=== PATIENT | male | born 1955 | race Caucasian/White ===

== ENCOUNTER 2023-10-24 09:03 | Outpatient (OUT) | payer OTHER, SELFPAY ==
[2023-10-24 09:45] LABS: Basophils Percent Auto 0.6 % (0.2-2.0); Eosinophils Absolute Auto 0.1 10^3/uL (0.0-0.7); Eosinophils Percent Auto 1.7 % (0.9-7.0); Hematocrit 40.5 % (42.0-54.0); Hemoglobin 13.6 g/dL (14.0-18.0); Immature Granulocytes Abs Auto 0.02 10^3/uL (0.00-0.03); Immature Granulocytes Pct Auto 0.3 % (0.0-0.5); Lymphocytes Absolute Auto 1.5 10^3/uL (1.2-3.8); Lymphocytes Percent Auto 21.4 % (20.5-60.0); Mean Corpuscular HGB Conc 33.6 g/dL (29.9-35.2); Mean Corpuscular Hemoglobin 29.8 pg (25.9-34.0); Mean Corpuscular Volume 88.8 fL (80.0-94.0); Monocytes Absolute Auto 0.5 10^3/uL (0.3-0.8); Monocytes Percent Auto 6.5 % (1.7-12.0); Neutrophils Absolute Auto 4.8 10^3/uL (1.4-6.5); Neutrophils Percent Auto 69.5 % (43.0-75.0); Platelet Count 273 10^3/uL (150-450); Red Blood Count 4.56 10^6/uL (4.70-6.10); White Blood Count 6.9 10^3/uL (4.0-11.0)
[2023-10-24 11:16] LABS: Prostate Specific Antigen Scrn 0.88 ng/mL (<=4.00)
[2023-10-24 13:00] LABS: Alanine Aminotransferase 27 U/L (16-63); Albumin Globulin Ratio 1.1; Alkaline Phosphatase 69 U/L (46-116); Aspartate Amino Transferase 16 U/L (15-37); BUN Creatinine Ratio 20.7; Bilirubin Total 0.7 mg/dL (0.2-1.0); Calcium 9.5 mg/dL (8.5-10.1); Chloride 104 mmol/L (98-107); Chol HDL Ratio 3.3; Cholesterol 193 mg/dL (<=200); Estimated GFR (African America >60 (>=60); Estimated GFR (Non-African Ame >60 (>=60); Globulin 3.6 g/dL; Glucose 121 mg/dL (74-106); HDL Cholesterol 59 mg/dL (40-60); LDL Cholesterol Calculated 122.2 mg/dL; Sodium 140 mmol/L (136-145); Total Protein 7.6 g/dL (6.4-8.2); Triglycerides 59 mg/dL (<=150); VLDL CHOLESTEROL 11.8 mg/dL
== END 2023-10-24 09:04 | disposition home or self-care (01) ==
LOC: LAB 09:07
PROVIDERS: PCP Family Medicine; Visit Provider Family Medicine
DX: Z12.5 Encounter for screening for malignant neoplasm of prostate (principal); I10 Essential (primary) hypertension
CPT/HCPCS: 36415; 80053; 80061; 85025; G0103

== ENCOUNTER 2025-05-13 09:28 | Outpatient (OUT) | payer MEDICARE, SELFPAY ==
--- OUTSIDE RECORDS SUMMARY | 2025-05-13 05:22 | XMS_ITS | Continuity of Care Document ---
Author Organization [facility] Address [address] [place] [address] Phone Care Team Providers Care Document Clerk Name Role Phone Rhina Shaw MD Primary Care Provider Rhina Shaw MD Attending Provider Care Teams Patient Care Team Team Status: Active Member Role/Relationship Status Dates Rhina Shaw MD Primary Care Provider Active Patient Care Team Team Status: Inactive Member Role/Relationship Status Dates Rhina Shaw MD Primary Care Provider Active Start: May 13, 2025 End: May 13, 2025Rhina Sahw MDAttending ProviderActiveStart: May 13, 2025 End: May 13, 2025 Chief Complaint and Reason for Visit Chief Complaint Admit Date Wellness May 13, 2025 8 :33am Reason for Visit Admit Date Hypertension May 13, 2025 8 :33am Screening PSA (prostate specific antigen ) May 13, 2025 8:33am Allergies, Adverse Reactions, Alerts Allergen Type Severity Reaction Last Updated Verified Status No Known Allergies Allergy Unknown May 13, 2025 8:54amYesActive Social History Smoking Status Status Start Date End Date Date of Observa tion Never smoked tobacco (finding) October 24, 2023 8:26am Observation Status Observation Response Date of Response Legal Sex [facility] (finding) [facility] [place] 1954 Family History Relationship Condition Age at Onset Recorded Date/T isaura mother Malignant neoplasm Unknown fatherHypertensionUnknownMyocardial infarctionUnknown Problems Active Problems Problem Diagnosis/Recorded Date Onset Date Stat us Screening PSA (prostate specific antigen) October 24, 2023 8:44am Unknown Active Hypertension October 23, 2023 4:56pm Unknown Acti ve Medications Medication Status Dose Units Route Directions Qty Days Refills S tart Date Stop Date End Date Reason(s) Instructions Adherence Lisinopril-Hydrochlorothiazide 20-25 mg tablet Discont inued 0 .ROUTE.BBBZOKO336Rbjgo 2023 12:36pmApril 2023 9:51amTAKE 1 TABLET BY MOUTH EVERY DAYLisinopril-Hydrochlorothiazide 20-25 mg tabletDiscontinued0.ROUTE .DQXNWUB129Wbbub 2023 9:51amNovember 2023 5:35pmTAKE 1 TABLET BY MOUTH EVERY DAYLisinopril-Hydrochlorothiazide 20-25 mg tabletDiscontinued0.ROUTE .MEOWOBL596Wdogxqrd 2023 5:35pmOctober 2024 9:17amTAKE 1 TABLET BY MOUTH EVERY DAYLisinopril-Hydrochlorothiazide 20-25 mg hcdjqlWumnwayvokst7HTQAO DailyApril 2023 12:00amApril 2023 12:36pmLisinopril- Hydrochlorothiazide 20-25 mg tabletActive0.ROUTE.VNOFBGJ056Jcnrlpt 2024 9:16amTAKE 1 TABLET BY MOUTH EVERY DAYComplies with drug therapy Vital Signs Vital Reading Result Reference Range Collection Date/Time Height 71 [in_i] May 13, 2025 8:31qpGtprwy49.80 [facility] 8:53amHeart Rate69 /kxl29-454Tzofncy 2024 8:53amBP Gkapwezp659 mm[Hg]100-140[facility] 2024 9:02amBP Hnbyxnohe53 mm[Hg]60-100[facility] 2024 9:02amBMI (Body Mass Index)29.1 kg/f5Gktuepk 2024 8:53am Advance Directives Advance Directive Response Recorded Date/ Time Advance Directives No October 12 3:07pm Insurance Providers Guarantor Jose Ricks Address [address] [facility] [address]Ktzxfdq Info.Home Phone: Coverage Status Update:2025 Payer Group Member ID Coverage Type Subscriber Relationship to Subscriber Effective Date Expiration Date [facility] [id number] Meyer Id: [id number] [address] [facility] [address] Home Phone: [employer] MCR [id number] Meyer Id: [id number] [address] [facility] [address] Home Phone: [employer] MCR PFFS [id number] Rambo Id: [id number] [address] [facility] [address] Home Phone: SelfRegular Insurance [address] [facility] [address] Work Phone: [phone] Meyer Id: [id number] [address] [facility] [address] Home Phone: Self Encounters Encounter Location(s) Arrival/Admit Date Discharge/Departure Date Discharge/Departure Disposition Provider(s) Departed Physician/ Provider Office Visit -[facility] May 13, 2025 8:33am May 13, 2025 9:20am Discharged to home care or self care (routine discharge) Rhina Shaw MD Recent Diagnosis Onset Date Admit Date Hypertension Unknown May 13 8:33am Screening PSA (prostate specific antigen) Unknow n May 13, 2025 8:33am Assessments Diagnosis Onset Date Resolution Status Admit Date Hypertension acuteOctober 2024 8:33amScreening PSA (prostate specific antigen)acute May 13, 2025 8:33am Plan of Treatment Future Tests Future scheduled test information is unavailable Pending Tests Test Name Ordered Date Scheduled Date Comprehensive Metabolic Panel May 13, 2025 9:14am Future Visits Future appointment information is unavailable Future Procedures Procedure Name Ordered Date Scheduled Date Complete Blood Count Auto Diff May 13 9:14am Lipid PanelOctober 2024 9:14amMicroAlb Creat Ratio,UOctober 2024 9:14amPSA Screen (Yearly Only)May 13, 2025 9:14am Future Medications Future medication information is unavailable Patient Instructions Patient instructions are unavailable
[2025-05-13 09:57] LABS: Hematocrit 41.3 % (42.0-54.0); Hemoglobin 14.3 g/dL (14.0-18.0); Immature Granulocytes Abs Auto 0.01 10^3/uL (0.00-0.03); Immature Granulocytes Pct Auto 0.2 % (0.0-0.5); Lymphocytes Absolute Auto 1.2 10^3/uL (1.2-3.8); Mean Corpuscular HGB Conc 34.6 g/dL (29.9-35.2); Mean Corpuscular Hemoglobin 31.2 pg (25.9-34.0); Mean Corpuscular Volume 90.0 fL (80.0-94.0); Platelet Count 271 10^3/uL (150-450); Red Blood Count 4.59 10^6/uL (4.70-6.10); White Blood Count 4.9 10^3/uL (4.0-11.0)
[2025-05-13 10:43] LABS: Alanine Aminotransferase 25 U/L (16-63); Albumin Globulin Ratio 1.1; Albumin Level 4.0 g/dL (3.4-5.0); Alkaline Phosphatase 57 U/L (46-116); Anion Gap 14.1; Aspartate Amino Transferase 17 U/L (15-37); Blood Urea Nitrogen 17.0 mg/dL (7.0-18.0); Calcium 9.0 mg/dL (8.5-10.1); Carbon Dioxide 26.9 mmol/L (21.0-32.0); Chloride 104 mmol/L (98-107); Cholesterol 189 mg/dL (<=200); Estimated GFR (African America >60 (>=60 mL/min/1.73m^2); Estimated GFR (Non-African Ame >60 (>=60 mL/min/1.73m^2); Globulin 3.5 g/dL; Glucose 123 mg/dL (74-106); HDL Cholesterol 63 mg/dL (40-60); Potassium 4.0 mmol/L (3.5-5.1); Sodium 141 mmol/L (136-145); Total Protein 7.5 g/dL (6.4-8.2); Triglycerides 48 mg/dL (<=150); VLDL CHOLESTEROL 9.6 mg/dL
== END 2025-05-13 09:29 | disposition home or self-care (01) ==
LOC: LAB 09:34
PROVIDERS: PCP Family Medicine; Visit Provider Family Medicine
DX: Z12.5 Encounter for screening for malignant neoplasm of prostate (principal); I10 Essential (primary) hypertension
CPT/HCPCS: 36415; 80053; 80061; 82043; 82570; 85025; G0103